=== PATIENT | male | born 1955 | race Caucasian/White ===

== ENCOUNTER → 2020-04-08 12:08 | Outpatient (BNVA) | payer OTHER, SELFPAY | PROVIDERS: Visit Provider Internal Medicine Gastroenterology | DX: Z76.89 Persons encountering health services in other specified circumstances (principal) ==

== ENCOUNTER → 2020-04-19 09:20 | Outpatient (BNVA) | payer OTHER, SELFPAY | PROVIDERS: Visit Provider Internal Medicine Gastroenterology | DX: Z76.89 Persons encountering health services in other specified circumstances (principal) ==

== ENCOUNTER 2020-05-05 16:22 | Outpatient (REF) | payer OTHER, SELFPAY ==
[2020-05-05 18:10] LABS: MANUAL DIFF FLAG NO
[2020-05-05 18:17] LABS: Basophils Percent Auto 0.5 % (0-2); Eosinophils Absolute Auto 0.2 X10*3/uL (0.0-0.4); Eosinophils Percent Auto 2.7 % (0-4); Hematocrit 42.5 % (42-52); Hemoglobin 14.2 g/dl (14.0-18.0); Imm Gran Abs Auto 0.01 X10*3/uL (0.00-0.03); Imm Gran Pct Auto 0.2 % (0.0-0.4); Lymphocytes Absolute Auto 3.1 X10*3/uL (1.2-4.9); Lymphocytes Percent Auto 46.1 % (20-40); Mean Corpuscular HGB Conc 33.4 g/dl (31.0-36.0); Mean Corpuscular Hemoglobin 30.5 pg (27.0-33.0); Mean Corpuscular Volume 91.4 fL (80-98); Mean Platelet Volume 11.9 fL (9.4-12.4); Monocytes Absolute Auto 0.6 X10*3/uL (0.1-1.2); Monocytes Percent Auto 9.2 % (2-11); Neutrophils Absolute Auto 2.7 X10*3/uL (2.0-8.3); Neutrophils Percent Auto 41.3 % (45-73); Platelet Count 201 X10*3/uL (160-400); Red Blood Count 4.65 X10*6/uL (4.60-5.80); Red Cell Distribution Width 12.4 % (11.0-16.0); White Blood Count 6.6 X10*3/uL (4.8-10.8)
[2020-05-05 18:31] LABS: Alanine Aminotransferase 17 U/L (0-40); Albumin Level 4.2 g/dL (3.5-5.0); Alkaline Phosphatase 74 U/L (39-117); Anion Gap 16 (12-20); Aspartate Amino Transferase 17 U/L (5-37); Bilirubin Total 0.3 mg/dL (0.0-1.0); Blood Urea Nitrogen 26 mg/dL (9-16); Calcium 8.7 mg/dL (8.4-10.2); Carbon Dioxide 24 mmol/L (22-29); Chloride 104 mmol/L (96-108); Estimated Glomerular Filt Rate 53; Glucose Random 76 mg/dL (60-115); Potassium 5.2 mmol/l (3.3-5.1); Sodium 139 mmol/L (135-145); Total Protein 7.6 g/dL (6.5-8.0)
[2020-08-31 11:36] LABS: HepC Viral Load <15 NOT DETECTED
[2020-08-31 11:37] LABS: HCV Log PCR <1.18 NOT DETECTED
== END 2020-05-05 16:23 | disposition home or self-care (01) ==
LOC: HO.LAB 16:22
PROVIDERS: PCP Internal Medicine; Visit Provider Internal Medicine Gastroenterology
DX: B18.2 Chronic viral hepatitis C (principal)
CPT/HCPCS: 36415; 80053; 85025; 87522

== ENCOUNTER 2020-06-03 16:26 | Outpatient (REF) | payer OTHER, SELFPAY ==
[2020-06-03 16:48] LABS: MANUAL DIFF FLAG NO
[2020-06-03 16:58] LABS: Basophils Percent Auto 0.5 % (0-2); Eosinophils Absolute Auto 0.1 X10*3/uL (0.0-0.4); Hematocrit 43.8 % (42-52); Hemoglobin 14.9 g/dl (14.0-18.0); Imm Gran Abs Auto 0.01 X10*3/uL (0.00-0.03); Imm Gran Pct Auto 0.2 % (0.0-0.4); Lymphocytes Absolute Auto 2.5 X10*3/uL (1.2-4.9); Mean Corpuscular Hemoglobin 30.7 pg (27.0-33.0); Mean Corpuscular Volume 90.1 fL (80-98); Monocytes Absolute Auto 0.5 X10*3/uL (0.1-1.2); Monocytes Percent Auto 8.7 % (2-11); Neutrophils Absolute Auto 2.3 X10*3/uL (2.0-8.3); Neutrophils Percent Auto 42.6 % (45-73); Platelet Count 203 X10*3/uL (160-400); Red Blood Count 4.86 X10*6/uL (4.60-5.80); White Blood Count 5.5 X10*3/uL (4.8-10.8)
[2020-06-03 17:23] LABS: Alanine Aminotransferase 15 U/L (0-40); Albumin Level 4.2 g/dL (3.5-5.0); Alkaline Phosphatase 77 U/L (39-117); Anion Gap 13 (12-20); Aspartate Amino Transferase 15 U/L (5-37); Bilirubin Total 0.5 mg/dL (0.0-1.0); Blood Urea Nitrogen 29 mg/dL (9-16); Calcium 9.4 mg/dL (8.4-10.2); Carbon Dioxide 26 mmol/L (22-29); Chloride 107 mmol/L (96-108); Estimated Glomerular Filt Rate 48; Glucose Random 83 mg/dL (60-115); Sodium 141 mmol/L (135-145); Total Protein 7.6 g/dL (6.5-8.0)
== END 2020-06-03 16:27 | disposition home or self-care (01) ==
LOC: HO.LAB 16:26
PROVIDERS: PCP Internal Medicine; Visit Provider Internal Medicine Gastroenterology
DX: B18.2 Chronic viral hepatitis C (principal)
CPT/HCPCS: 36415; 80053; 85025

== ENCOUNTER → 2020-06-27 11:33 | Outpatient (BNVA) | payer OTHER, SELFPAY | PROVIDERS: Visit Provider Internal Medicine Gastroenterology | DX: Z76.89 Persons encountering health services in other specified circumstances (principal) ==

== ENCOUNTER 2020-06-28 16:20 | Outpatient (REF) | payer OTHER, SELFPAY ==
[2020-06-28 17:07] LABS: MANUAL DIFF FLAG NO
[2020-06-28 17:13] LABS: Basophils Percent Auto 0.6 % (0-2); Eosinophils Absolute Auto 0.1 X10*3/uL (0.0-0.4); Hematocrit 44.9 % (42-52); Hemoglobin 15.2 g/dl (14.0-18.0); Imm Gran Abs Auto 0.02 X10*3/uL (0.00-0.03); Imm Gran Pct Auto 0.3 % (0.0-0.4); Lymphocytes Absolute Auto 3.1 X10*3/uL (1.2-4.9); Lymphocytes Percent Auto 45.3 % (20-40); Mean Corpuscular HGB Conc 33.9 g/dl (31.0-36.0); Mean Corpuscular Hemoglobin 30.3 pg (27.0-33.0); Mean Corpuscular Volume 89.6 fL (80-98); Mean Platelet Volume 11.2 fL (9.4-12.4); Monocytes Absolute Auto 0.6 X10*3/uL (0.1-1.2); Neutrophils Percent Auto 43.8 % (45-73); Platelet Count 204 X10*3/uL (160-400); Red Blood Count 5.01 X10*6/uL (4.60-5.80); Red Cell Distribution Width 13.2 % (11.0-16.0); White Blood Count 6.8 X10*3/uL (4.8-10.8)
[2020-06-28 17:49] LABS: Alanine Aminotransferase 17 U/L (0-40); Albumin Level 4.4 g/dL (3.5-5.0); Alkaline Phosphatase 81 U/L (39-117); Anion Gap 11 (12-20); Aspartate Amino Transferase 14 U/L (5-37); Bilirubin Direct 0.2 mg/dL (0.0-0.5); Bilirubin Total 0.4 mg/dL (0.0-1.0); Blood Urea Nitrogen 19 mg/dL (9-16); Carbon Dioxide 26 mmol/L (22-29); Chloride 104 mmol/L (96-108); Estimated Glomerular Filt Rate 58; Glucose Random 97 mg/dL (60-115); Potassium 4.3 mmol/l (3.3-5.1); Sodium 137 mmol/L (135-145)
[2020-08-31 11:58] LABS: HepC Viral Load <15 NOT DETECTED
[2020-08-31 11:59] LABS: HCV Log PCR <1.18 NOT DETECTED
== END 2020-06-28 16:21 | disposition home or self-care (01) ==
LOC: HO.LAB 16:20
PROVIDERS: PCP Internal Medicine; Visit Provider Internal Medicine Gastroenterology
DX: B18.2 Chronic viral hepatitis C (principal)
CPT/HCPCS: 36415; 80053; 80076; 82248; 85025; 87522

== ENCOUNTER 2020-07-11 16:27 | Outpatient (REF) | payer OTHER, SELFPAY ==
[2020-07-11 17:56] LABS: MANUAL DIFF FLAG NO
[2020-07-11 18:00] LABS: Basophils Percent Auto 0.5 % (0-2); Eosinophils Absolute Auto 0.1 X10*3/uL (0.0-0.4); Eosinophils Percent Auto 1.7 % (0-4); Hematocrit 44.3 % (42-52); Imm Gran Abs Auto 0.02 X10*3/uL (0.00-0.03); Imm Gran Pct Auto 0.3 % (0.0-0.4); Lymphocytes Percent Auto 45.6 % (20-40); Mean Corpuscular HGB Conc 33.9 g/dl (31.0-36.0); Mean Corpuscular Hemoglobin 30.7 pg (27.0-33.0); Mean Corpuscular Volume 90.6 fL (80-98); Mean Platelet Volume 11.3 fL (9.4-12.4); Monocytes Absolute Auto 0.6 X10*3/uL (0.1-1.2); Monocytes Percent Auto 8.4 % (2-11); Neutrophils Absolute Auto 2.8 X10*3/uL (2.0-8.3); Neutrophils Percent Auto 43.5 % (45-73); Platelet Count 194 X10*3/uL (160-400); Red Blood Count 4.89 X10*6/uL (4.60-5.80); Red Cell Distribution Width 13.5 % (11.0-16.0); White Blood Count 6.5 X10*3/uL (4.8-10.8)
[2020-07-11 18:18] LABS: Alanine Aminotransferase 15 U/L (0-40); Albumin Level 4.4 g/dL (3.5-5.0); Alkaline Phosphatase 77 U/L (39-117); Anion Gap 13 (12-20); Aspartate Amino Transferase 13 U/L (5-37); Bilirubin Total 0.3 mg/dL (0.0-1.0); Blood Urea Nitrogen 24 mg/dL (9-16); Calcium 9.6 mg/dL (8.4-10.2); Carbon Dioxide 28 mmol/L (22-29); Chloride 103 mmol/L (96-108); Estimated Glomerular Filt Rate 57; Glucose Random 119 mg/dL (60-115); Potassium 5.7 mmol/l (3.3-5.1); Sodium 138 mmol/L (135-145); Total Protein 7.9 g/dL (6.5-8.0)
[2020-08-31 12:05] LABS: HCV Log PCR <1.18 NOT DETECTED; HepC Viral Load <15 NOT DETECTED
== END 2020-07-11 16:28 | disposition home or self-care (01) ==
LOC: HO.LAB 16:27
PROVIDERS: PCP Internal Medicine; Visit Provider Internal Medicine Gastroenterology
DX: B18.2 Chronic viral hepatitis C (principal)
CPT/HCPCS: 36415; 80053; 85025; 87522

== ENCOUNTER → 2020-08-01 10:53 | Outpatient (BNVA) | payer OTHER, SELFPAY | PROVIDERS: PCP Internal Medicine; Referring Provider Internal Medicine; Visit Provider Internal Medicine Endocrinology, Diabetes & Metabolism ==

== ENCOUNTER → 2020-08-23 10:31 | Outpatient (BNVA) | payer OTHER, SELFPAY | PROVIDERS: PCP Internal Medicine; Visit Provider Internal Medicine Gastroenterology ==

== ENCOUNTER 2020-09-26 16:12 | Outpatient (REF) | payer OTHER, SELFPAY ==
[2020-09-26 16:52] LABS: MANUAL DIFF FLAG NO
[2020-09-26 16:57] LABS: Basophils Percent Auto 0.6 % (0-2); Eosinophils Absolute Auto 0.1 X10*3/uL (0.0-0.4); Eosinophils Percent Auto 1.1 % (0-4); Hematocrit 39.3 % (42-52); Hemoglobin 13.6 g/dl (14.0-18.0); Imm Gran Abs Auto 0.01 X10*3/uL (0.00-0.03); Imm Gran Pct Auto 0.1 % (0.0-0.4); Lymphocytes Absolute Auto 2.9 X10*3/uL (1.2-4.9); Mean Corpuscular HGB Conc 34.6 g/dl (31.0-36.0); Mean Corpuscular Hemoglobin 30.9 pg (27.0-33.0); Mean Corpuscular Volume 89.3 fL (80-98); Mean Platelet Volume 10.9 fL (9.4-12.4); Monocytes Absolute Auto 0.6 X10*3/uL (0.1-1.2); Neutrophils Absolute Auto 3.4 X10*3/uL (2.0-8.3); Neutrophils Percent Auto 48.2 % (45-73); Platelet Count 217 X10*3/uL (160-400); Red Cell Distribution Width 13.2 % (11.0-16.0)
[2020-09-26 17:24] LABS: Alanine Aminotransferase 18 U/L (0-40); Albumin Level 4.3 g/dL (3.5-5.0); Alkaline Phosphatase 75 U/L (39-117); Anion Gap 14 (12-20); Aspartate Amino Transferase 16 U/L (5-37); Bilirubin Total 0.5 mg/dL (0.0-1.0); Blood Urea Nitrogen 26 mg/dL (9-16); Calcium 9.4 mg/dL (8.4-10.2); Carbon Dioxide 25 mmol/L (22-29); Chloride 106 mmol/L (96-108); Estimated Glomerular Filt Rate 56; Glucose Random 84 mg/dL (60-115); Potassium 4.9 mmol/L (3.3-5.1); Sodium 140 mmol/L (135-145); Total Protein 7.6 g/dL (6.5-8.0)
== END 2020-09-26 16:13 | disposition home or self-care (01) ==
LOC: HO.LAB 16:12
PROVIDERS: PCP Internal Medicine; Visit Provider Internal Medicine Gastroenterology
DX: B18.2 Chronic viral hepatitis C (principal)
CPT/HCPCS: 36415; 80053; 85025

== ENCOUNTER 2020-10-03 16:07 | Outpatient (REF) | payer OTHER, SELFPAY ==
[2020-10-03 17:16] LABS: Hematocrit 42.5 % (42-52); Hemoglobin 14.1 g/dl (14.0-18.0); Mean Corpuscular HGB Conc 33.2 g/dl (31.0-36.0); Mean Corpuscular Hemoglobin 29.7 pg (27.0-33.0); Mean Corpuscular Volume 89.7 fL (80-98); Mean Platelet Volume 11.1 fL (9.4-12.4); Platelet Count 191 X10*3/uL (160-400); Red Blood Count 4.74 X10*6/uL (4.60-5.80); Red Cell Distribution Width 13.1 % (11.0-16.0); White Blood Count 6.8 X10*3/uL (4.8-10.8)
[2020-10-03 18:04] LABS: Creatinine Urine 162.62 mg/dL
[2020-10-03 18:17] LABS: Protein/Creatinine Ratio, Ur 1.93 (<0.2); Total Protein Urine Random 314 mg/dL (<12)
[2020-10-04 11:52] LABS: Calcium (PTHI) 9.8 mg/dL (8.6-10.3); PTHI 94 pg/mL (14-64)
== END 2020-10-03 16:08 | disposition home or self-care (01) ==
LOC: HO.LAB 16:07
PROVIDERS: PCP Internal Medicine; Visit Provider Internal Medicine Hypertension Specialist
DX: N18.31 Chronic kidney disease, stage 3a (principal)
CPT/HCPCS: 36415; 83970; 84156; 85027

== ENCOUNTER 2020-12-12 12:16 | Outpatient (REF) | payer OTHER, SELFPAY ==
[2020-12-12 13:51] LABS: MANUAL DIFF FLAG NO
[2020-12-12 14:03] LABS: Basophils Percent Auto 0.5 % (0-2); Eosinophils Absolute Auto 0.1 X10*3/uL (0.0-0.4); Eosinophils Percent Auto 1.7 % (0-4); Hematocrit 39.5 % (42-52); Hemoglobin 13.2 g/dl (14.0-18.0); Imm Gran Abs Auto 0.02 X10*3/uL (0.00-0.03); Imm Gran Pct Auto 0.3 % (0.0-0.4); Lymphocytes Absolute Auto 2.7 X10*3/uL (1.2-4.9); Mean Corpuscular HGB Conc 33.4 g/dl (31.0-36.0); Mean Corpuscular Hemoglobin 29.7 pg (27.0-33.0); Mean Platelet Volume 10.8 fL (9.4-12.4); Monocytes Absolute Auto 0.6 X10*3/uL (0.1-1.2); Monocytes Percent Auto 9.8 % (2-11); Neutrophils Absolute Auto 2.6 X10*3/uL (2.0-8.3); Neutrophils Percent Auto 42.7 % (45-73); Platelet Count 192 X10*3/uL (160-400); Red Blood Count 4.44 X10*6/uL (4.60-5.80); Red Cell Distribution Width 13.4 % (11.0-16.0); White Blood Count 6.1 X10*3/uL (4.8-10.8)
[2020-12-12 14:17] LABS: Anion Gap 10 (12-20); Blood Urea Nitrogen 21 mg/dL (9-16); Calcium 9.7 mg/dL (8.4-10.2); Carbon Dioxide 27 mmol/L (22-29); Chloride 106 mmol/L (96-108); Estimated Glomerular Filt Rate > 60; Potassium 4.9 mmol/L (3.3-5.1); Sodium 138 mmol/L (135-145)
[2020-12-12 14:20] LABS: Anion Gap 13 (12-20); Blood Urea Nitrogen 21 mg/dL (9-16); Calcium 9.4 mg/dL (8.4-10.2); Carbon Dioxide 24 mmol/L (22-29); Chloride 106 mmol/L (96-108); Estimated Glomerular Filt Rate > 60; Glucose Random 154 mg/dL (60-115); Potassium 4.6 mmol/L (3.3-5.1); Sodium 138 mmol/L (135-145)
[2020-12-14 10:36] LABS: Calcium (PTHI) 9.6 mg/dL (8.6-10.3); PTHI 66 pg/mL (14-64)
== END 2020-12-12 12:17 | disposition home or self-care (01) ==
LOC: HO.LAB 12:16
PROVIDERS: Absent Provider Internal Medicine Hypertension Specialist; PCP Internal Medicine; Referring Provider Internal Medicine Gastroenterology; Visit Provider Internal Medicine Endocrinology, Diabetes & Metabolism
DX: E11.65 Type 2 diabetes mellitus with hyperglycemia (principal); E11.21 Type 2 diabetes mellitus with diabetic nephropathy; E11.42 Type 2 diabetes mellitus with diabetic polyneuropathy; E11.22 Type 2 diabetes mellitus with diabetic chronic kidney disease; I12.9 Hypertensive chronic kidney disease with stage 1 through stage 4 chronic kidney disease, or unspecified chronic kidney disease; N18.31 Chronic kidney disease, stage 3a; E78.5 Hyperlipidemia, unspecified; E66.9 Obesity, unspecified; Z68.38 Body mass index [BMI] 38.0-38.9, adult; B18.2 Chronic viral hepatitis C; Z79.4 Long term (current) use of insulin
CPT/HCPCS: 36415; 80048; 80051; 82310; 82565; 82947; 83036; 83970; 84520; 85025

== ENCOUNTER → 2021-04-13 12:07 | Outpatient (BNVA) | payer OTHER, SELFPAY | PROVIDERS: PCP Internal Medicine; Visit Provider Nurse Practitioner Gerontology | DX: E11.65 Type 2 diabetes mellitus with hyperglycemia (principal); E11.21 Type 2 diabetes mellitus with diabetic nephropathy; E11.42 Type 2 diabetes mellitus with diabetic polyneuropathy; I10 Essential (primary) hypertension; E78.5 Hyperlipidemia, unspecified; C61 Malignant neoplasm of prostate; E66.9 Obesity, unspecified; Z68.38 Body mass index [BMI] 38.0-38.9, adult; Z88.8 Allergy status to other drugs, medicaments and biological substances; Z88.1 Allergy status to other antibiotic agents; Z88.0 Allergy status to penicillin; Z91.013 Allergy to seafood; Z79.4 Long term (current) use of insulin; Z79.84 Long term (current) use of oral hypoglycemic drugs; Z79.899 Other long term (current) drug therapy | CPT/HCPCS: 82947; 83036 ==

== ENCOUNTER 2021-04-18 09:32 | Outpatient (REF) | payer OTHER, SELFPAY ==
[2021-04-18 11:06] LABS: Creatinine Urine 123.19 mg/dL
[2021-04-18 11:11] LABS: Alanine Aminotransferase 14 U/L (0-40); Albumin Level 4.2 g/dL (3.5-5.0); Alkaline Phosphatase 78 U/L (39-117); Anion Gap 14 (12-20); Aspartate Amino Transferase 14 U/L (5-37); Bilirubin Total 0.5 mg/dL (0.0-1.0); Blood Urea Nitrogen 22 mg/dL (9-16); Calcium 9.9 mg/dL (8.4-10.2); Carbon Dioxide 23 mmol/L (22-29); Chloride 107 mmol/L (96-108); Cholesterol 135 mg/dL; Estimated Glomerular Filt Rate 54; Glucose Fasting 122 mg/dL (60-99); HDL Cholesterol 29 mg/dL; LDL Cholesterol Calculated 72 mg/dl; Potassium 5.2 mmol/L (3.3-5.1); Sodium 139 mmol/L (135-145); Total Protein 7.4 g/dL (6.5-8.0); Triglycerides 174 mg/dL
[2021-04-18 11:55] LABS: Microalbum/Creatinine Ratio Ur 1987.9 ug/mg cr
[2021-04-19 07:41] LABS: LDL Cholesterol Direct 73 mg/dL (<100)
== END 2021-04-18 09:33 | disposition home or self-care (01) ==
LOC: HO.LAB 09:32
PROVIDERS: Absent Provider Nurse Practitioner Gerontology; Visit Provider Internal Medicine Gastroenterology
DX: E11.65 Type 2 diabetes mellitus with hyperglycemia (principal)
CPT/HCPCS: 36415; 80053; 80061; 82043; 83721

== ENCOUNTER 2021-11-22 10:17 | Outpatient (REF) | payer OTHER, SELFPAY ==
[2021-11-22 13:03] LABS: Anion Gap 12 (12-20); Blood Urea Nitrogen 20 mg/dL (9-16); Calcium 9.4 mg/dL (8.4-10.2); Carbon Dioxide 23 mmol/L (22-29); Chloride 105 mmol/L (96-108); Estimated Glomerular Filt Rate 46; Potassium 4.6 mmol/L (3.3-5.1); Sodium 135 mmol/L (135-145)
[2021-11-22 13:51] LABS: Creatinine Urine 275.56 mg/dL
[2021-11-22 14:10] LABS: Total Protein Urine Random 936 mg/dL (<12)
== END 2021-11-22 10:18 | disposition home or self-care (01) ==
LOC: HO.LAB 10:17
PROVIDERS: Absent Provider Internal Medicine Hypertension Specialist; PCP Nurse Practitioner; Visit Provider Nurse Practitioner Gerontology
DX: E11.29 Type 2 diabetes mellitus with other diabetic kidney complication (principal); E11.65 Type 2 diabetes mellitus with hyperglycemia; E11.21 Type 2 diabetes mellitus with diabetic nephropathy; E11.42 Type 2 diabetes mellitus with diabetic polyneuropathy; E78.5 Hyperlipidemia, unspecified; I10 Essential (primary) hypertension; E66.9 Obesity, unspecified; Z79.4 Long term (current) use of insulin
CPT/HCPCS: 36415; 80051; 82310; 82565; 82947; 83036; 84156; 84520

== ENCOUNTER 2022-10-09 14:36 | Outpatient (REF) | payer OTHER, SELFPAY ==
[2022-10-09 14:48] LABS: MANUAL DIFF FLAG NO
[2022-10-09 15:31] LABS: Basophils Absolute Auto 0.1 X10*3/uL (0.0-0.2); Basophils Percent Auto 0.8 % (0-2); Eosinophils Absolute Auto 0.1 X10*3/uL (0.0-0.4); Hematocrit 39.4 % (42.0-52.0); Imm Gran Abs Auto 0.02 X10*3/uL (0.00-0.03); Imm Gran Pct Auto 0.3 % (0.0-0.4); Lymphocytes Absolute Auto 2.8 X10*3/uL (1.2-4.9); Lymphocytes Percent Auto 47.8 % (20-40); Mean Corpuscular Hemoglobin 28.7 pg (27.0-33.0); Mean Platelet Volume 11.5 fL (9.4-12.4); Monocytes Absolute Auto 0.5 X10*3/uL (0.1-1.2); Monocytes Percent Auto 8.3 % (2-11); Neutrophils Absolute Auto 2.4 x10*3/uL (2.0-8.3); Neutrophils Percent Auto 40.8 % (45-73); Platelet Count 220 X10*3/uL (160-400); Red Blood Count 4.53 X10*6/uL (4.60-5.80); Red Cell Distribution Width 13.7 % (11.0-16.0); White Blood Count 5.9 X10*3/uL (4.8-10.8)
[2022-10-09 16:02] LABS: Anion Gap 14 (12-20); Blood Urea Nitrogen 27 mg/dL (9-16); Calcium 9.1 mg/dL (8.4-10.2); Carbon Dioxide 22 mmol/L (22-29); Chloride 107 mmol/L (96-108); Estimated Glomerular Filt Rate 39; Glucose Random 199 mg/dL (60-115); Potassium 5.6 mmol/L (3.3-5.1); Sodium 137 mmol/L (135-145)
[2022-10-09 16:24] LABS: Creatinine Urine 74.59 mg/dL; Protein/Creatinine Ratio, Ur 6.85 (<0.2); Total Protein Urine Random 511 mg/dL (<12)
== END 2022-10-09 14:37 | disposition home or self-care (01) ==
LOC: HO.LAB 14:36
PROVIDERS: PCP Nurse Practitioner; Visit Provider Internal Medicine Hypertension Specialist
DX: N18.31 Chronic kidney disease, stage 3a (principal)
CPT/HCPCS: 36415; 80048; 84156; 85025

== ENCOUNTER 2022-11-27 14:52 | Outpatient (REF) | payer BC, SELFPAY ==
[2022-11-27 15:32] LABS: INTERNATIONAL NORM RATIO 0.9 (0.9-1.1); Prothrombin Time 10.3 SEC (10.0-13.1)
[2022-11-27 18:52] LABS: Creatinine Urine 67.02 mg/dL
[2022-11-27 19:13] LABS: Protein/Creatinine Ratio, Ur 5.74 (<0.2); Total Protein Urine Random 385 mg/dL (<12)
[2022-11-28 07:52] LABS: HBc Num1 0.07 S/CO (0.00-0.79); HBsAGNum1 0.39 S/CO (0.00-0.99); Hepatitis B Core Antibody Nonreactive (Nonreactive); Hepatitis B Surface Antigen Negative (Negative); ~HepC Num1 13.86 S/CO (0.00-0.79); ~Hepatitis C Antibody Reactive (Nonreactive)
[2022-11-29 16:23] LABS: Anti Glomerular Basement Memb <1.0 AI
[2022-11-30 10:58] LABS: Complement C3 159 mg/dL (82-185)
[2022-12-02 23:33] LABS: Prot Elec - Albumin 3.9 g/dL (3.8-4.8); Prot Elec - Alpha1 0.4 g/dL (0.2-0.3); Prot Elec - Alpha2 0.9 g/dL (0.5-0.9); Prot Elec - Beta 1 0.4 g/dL (0.4-0.6); Prot Elec - Beta 2 0.4 g/dL (0.2-0.5); Prot Elec - Gamma 1.1 g/dL (0.8-1.7); Prot Elec - Total Protein 7.1 g/dL (6.1-8.1)
[2022-12-04 13:28] LABS: Anti Nuclear Antibody Screen POSITIVE (NEGATIVE)
[2022-12-05 12:07] LABS: Neutrophil Cyto Ab Screen NEGATIVE (NEGATIVE)
== END 2022-11-27 14:53 | disposition home or self-care (01) ==
LOC: HO.LAB 14:52
PROVIDERS: Visit Provider Internal Medicine Hypertension Specialist
DX: N18.32 Chronic kidney disease, stage 3b (principal)
CPT/HCPCS: 83520; 84156; 84165; 85610; 86036; 86038; 86039; 86160; 86335; 86704; 86803; 87340

== ENCOUNTER 2022-12-06 15:15 | Outpatient (REF) | payer MEDICARE, SELFPAY ==
[2022-12-06 16:32] LABS: Calcium 9.7 mg/dL (8.4-10.2)
[2022-12-06 16:47] LABS: Anion Gap 12 (12-20); Blood Urea Nitrogen 27 mg/dL (9-16); Carbon Dioxide 24 mmol/L (22-29); Chloride 109 mmol/L (96-108); Estimated Glomerular Filt Rate 40; Glucose Random 142 mg/dL (60-115); Potassium 5.1 mmol/L (3.3-5.1); Sodium 140 mmol/L (135-145)
== END 2022-12-06 15:16 | disposition home or self-care (01) ==
LOC: HO.LAB 15:15
PROVIDERS: Visit Provider Internal Medicine Hypertension Specialist
DX: N18.32 Chronic kidney disease, stage 3b (principal)
CPT/HCPCS: 36415; 80048

== ENCOUNTER 2024-01-15 15:16 | Outpatient (REF) | payer MEDICARE, SELFPAY ==
[2024-01-15 15:39] LABS: MANUAL DIFF FLAG NO
[2024-01-15 17:30] LABS: Appearance Urine Clear; Color Urine Yellow; Glucose Urine UA 100 mg/dL (Negative); Leukocyte Esterase Urine Negative (Negative); Nitrite Urine Negative (Negative); PH 5.5 (5.0-9.0); Specific Gravity - Urine 1.015 (1.005-1.025); UMIC TRIGGER UA YES; Urine Blood Small (1+) (Negative); Urine Ketones Negative (Negative); Urine Protein 300 (3+) mg/dL (Neg-Trace)
[2024-01-15 17:33] LABS: Basophils Percent Auto 0.7 % (0-2); Eosinophils Absolute Auto 0.2 X10*3/uL (0.0-0.4); Eosinophils Percent Auto 2.7 % (0-4); Hematocrit 38.7 % (42.0-52.0); Hemoglobin 12.6 g/dl (14.0-18.0); Imm Gran Abs Auto 0.02 X10*3/uL (0.00-0.03); Imm Gran Pct Auto 0.4 % (0.0-0.4); Lymphocytes Absolute Auto 2.6 X10*3/uL (1.2-4.9); Lymphocytes Percent Auto 46.2 % (20-40); Mean Corpuscular HGB Conc 32.6 g/dl (31.0-36.0); Mean Corpuscular Hemoglobin 29.4 pg (27.0-33.0); Mean Corpuscular Volume 90.2 fL (80.0-98.0); Mean Platelet Volume 11.7 fL (9.4-12.4); Monocytes Absolute Auto 0.5 X10*3/uL (0.1-1.2); Monocytes Percent Auto 8.9 % (2-11); Neutrophils Absolute Auto 2.3 x10*3/uL (2.0-8.3); Neutrophils Percent Auto 41.1 % (45-73); Platelet Count 240 X10*3/uL (160-400); Red Blood Count 4.29 X10*6/uL (4.60-5.80); Red Cell Distribution Width 14.4 % (11.0-16.0); White Blood Count 5.6 X10*3/uL (4.8-10.8)
[2024-01-15 17:50] LABS: Bacteria Urine None Seen (None Seen); Hyaline Casts Urine 0-2 /LPF (0-2); Squamous Epithelial Cell Urine 0-2 /HPF (0-2); WBC Urine 0-5 /HPF (0-5)
[2024-01-15 18:18] LABS: Albumin Level 3.8 g/dL (3.5-5.0); Anion Gap 15 (12-20); Blood Urea Nitrogen 42 mg/dL (9-16); Calcium 9.6 mg/dL (8.4-10.2); Carbon Dioxide 20 mmol/L (22-29); Chloride 107 mmol/L (96-108); Estimated Glomerular Filt Rate 27; Magnesium 1.8 mg/dL (1.6-2.6); Potassium 5.7 mmol/L (3.3-5.1); Sodium 136 mmol/L (135-145)
[2024-01-15 18:26] LABS: Vitamin D 25-OH Total 9.8 ng/mL (>30)
[2024-01-15 18:46] LABS: Creatinine Urine 56.87 mg/dL; Microalbumin Urine > 2000.0 mg/L
[2024-01-15 19:15] LABS: Protein/Creatinine Ratio, Ur 8.88 (<0.2); Total Protein Urine Random 505 mg/dL (<12)
[2024-01-16 06:12] LABS: Parathyroid Hormone Intact 292.3 pg/mL (8.7-77.1)
== END 2024-01-15 15:17 | disposition home or self-care (01) ==
LOC: HO.LAB 15:16
PROVIDERS: PCP Student in an Organized Health Care Education/Training Program; Visit Provider Internal Medicine Nephrology
DX: E11.21 Type 2 diabetes mellitus with diabetic nephropathy (principal); I10 Essential (primary) hypertension; I12.9 Hypertensive chronic kidney disease with stage 1 through stage 4 chronic kidney disease, or unspecified chronic kidney disease; N25.0 Renal osteodystrophy; R80.1 Persistent proteinuria, unspecified
CPT/HCPCS: 36415; 80051; 81001; 82040; 82043; 82306; 82310; 82565; 82570; 83735; 83970; 84100; 84156; 84520; 85025; 87086

== ENCOUNTER 2024-05-11 13:45 | Outpatient (REF) | payer MEDICARE, SELFPAY ==
[2024-05-11 14:06] LABS: MANUAL DIFF FLAG NO
[2024-05-11 14:13] LABS: Appearance Urine Clear; Color Urine Yellow; Glucose Urine UA 100 mg/dL (Negative); Leukocyte Esterase Urine Negative (Negative); Nitrite Urine Negative (Negative); PH 5.5 (5.0-9.0); UMIC TRIGGER UA YES; Urine Blood Trace (Negative); Urine Ketones Negative (Negative); Urine Protein 100 (2+) mg/dL (Neg-Trace)
[2024-05-11 14:25] LABS: Bacteria Urine None Seen (None Seen); Hyaline Casts Urine 0-2 /LPF (0-2); RBC Urine 0-2 /HPF (0-2); Squamous Epithelial Cell Urine 0-2 /HPF (0-2); WBC Urine 0-5 /HPF (0-5)
[2024-05-11 14:38] LABS: Creatinine Urine 33.38 mg/dL; Protein/Creatinine Ratio, Ur 4.37 (<0.2); Total Protein Urine Random 146 mg/dL (<12)
[2024-05-11 14:41] LABS: Basophils Absolute Auto 0.1 X10*3/uL (0.0-0.2); Basophils Percent Auto 0.8 % (0-2); Eosinophils Absolute Auto 0.2 X10*3/uL (0.0-0.4); Eosinophils Percent Auto 2.5 % (0-4); Hematocrit 34.4 % (42.0-52.0); Hemoglobin 11.5 g/dl (14.0-18.0); Imm Gran Abs Auto 0.03 X10*3/uL (0.00-0.03); Imm Gran Pct Auto 0.5 % (0.0-0.4); Lymphocytes Absolute Auto 2.7 X10*3/uL (1.2-4.9); Lymphocytes Percent Auto 41.5 % (20-40); Mean Corpuscular HGB Conc 33.4 g/dl (31.0-36.0); Mean Corpuscular Hemoglobin 29.5 pg (27.0-33.0); Mean Corpuscular Volume 88.2 fL (80.0-98.0); Mean Platelet Volume 11.5 fL (9.4-12.4); Monocytes Absolute Auto 0.5 X10*3/uL (0.1-1.2); Monocytes Percent Auto 8.3 % (2-11); Neutrophils Percent Auto 46.4 % (45-73); Platelet Count 246 X10*3/uL (160-400); Red Cell Distribution Width 13.2 % (11.0-16.0); White Blood Count 6.5 X10*3/uL (4.8-10.8)
[2024-05-11 15:01] LABS: Microalbum/Creatinine Ratio Ur 3112.6 ug/mg cr (<30)
[2024-05-11 15:16] LABS: Parathyroid Hormone Intact 333.1 pg/mL (8.7-77.1)
[2024-05-11 17:17] LABS: Anion Gap 14 (12-20); Blood Urea Nitrogen 42 mg/dL (9-16); Calcium 9.7 mg/dL (8.4-10.2); Carbon Dioxide 22 mmol/L (22-29); Chloride 103 mmol/L (96-108); Estimated Glomerular Filt Rate 25; Phosphorus 2.8 mg/dL (2.7-4.5); Potassium 4.8 mmol/L (3.3-5.1); Sodium 134 mmol/L (135-145); Vitamin D 25-OH Total 8.5 ng/mL (>30)
[2024-05-11 17:42] LABS: Magnesium 1.8 mg/dL (1.6-2.6)
== END 2024-05-11 13:46 | disposition home or self-care (01) ==
LOC: HO.LAB 13:45
PROVIDERS: PCP Student in an Organized Health Care Education/Training Program; Visit Provider Internal Medicine Nephrology
DX: N18.4 Chronic kidney disease, stage 4 (severe) (principal); R80.1 Persistent proteinuria, unspecified
CPT/HCPCS: 36415; 80051; 81001; 82040; 82043; 82306; 82310; 82565; 82570; 83735; 83970; 84100; 84156; 84520; 85025

== ENCOUNTER 2024-11-24 14:26 | Outpatient (REF) | payer MEDICARE, SELFPAY ==
--- OUTSIDE RECORDS SUMMARY | 2024-11-24 14:30 | XMS_ITS | Clinical Summary ---
Author Organization [facility] ity Address [address] [place] [address] Care Team Providers Care Textile Pin Worker Name Role Phone Unavailable Primary Care Provider Unavailabl e Medical History Medical History Date Comments Allergic rhinitis 11/21/2017 DX:Allergic rh initis Diabetic neuropathy (CMS/HCC V24, CMS/HCC V28) 11/21/2017 DX:Diabetic neuropathy (HCC) Diverticulosis of colon 11/12/2016 DX:Diver ticulosis of colon History of prostate cancer 04/03/2018 DX:Hi story of prostate cancer Hyperlipidemia 04/03/2018 DX:Hyperlipidemi a Hypertension 04/03/2018 DX:Hypertension Internal hemorrhoids 09/16/2015 DX:Internal hemorrhoids Proteinuria 04/03/2018 DX:Proteinuria Type 2 diabetes mellitus wit h neurological manifestations (CMS/HCC V24, CMS/HCC V28) 04/03/2018 DX: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 (CMS/HCC V24, CMS/HCC V28) 05/05/2018 DX: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) Urinary incontinence 03/14/2017 DX:Urinary incontinence Family History Medical History Relation Name Comments Alzheimer's disease Father Alzheimer's disease Mother Relation Name Status Comments Father Mother Social History Tobacco Use Types Packs/Day Years Used Date Smoking Tobacco: Never Smokeless Tobacco: Never Alcohol Use Standard Drinks/Week Comments Yes 1 (1 standard drink = 0.6 oz pur e alcohol) Sex and Gender Information Value Date Recorded Sex Assigned at Not on file Legal Sex Male 9:06 AM EST Gender Identity Not on file Sexual Orientation Not on file Obstetrics History Plan of Treatment Health Maintenance Due Date Last Done Comments DTaP,Tdap,and Td Vaccines (1 - Tdap) 1976 Zoster Vaccines (1 of 2) 11/04/2007 Pneumococcal Vaccine: 50+ Ye ars (2 of 2 - PCV) 11/12/2017 11/12/2016 COVID-19 Vaccine (2023-2 5 season) 2024 Influenza Vaccine (Season Ended) 2025 RSV Immunization Adult Patie nts (1 - 1-dose 75+ series) 2032 HIB Vaccines Aged Out No longer eligi ble based on patient's age to complete this topic HPV Vaccines Aged Out No longer eligi ble based on patient's age to complete this topic Hepatitis A Vaccines Aged Out No long er eligible based on patient's age to complete this topic Hepatitis B Vaccines Aged Out No long er eligible based on patient's age to complete this topic IPV Vaccines Aged Out No longer eligi ble based on patient's age to complete this topic MMR Vaccines Aged Out No longer eligi ble based on patient's age to complete this topic Meningococcal ACWY Vaccine Aged Out N o longer eligible based on patient's age to complete this topic Meningococcal B Vaccine Aged Out No l onger eligible based on patient's age to complete this topic RSV Immunization Patients Un greta 20 months Aged Out No longer eligible b ased on patient's age to complete this topic Varicella Vaccines Aged Out No longer eligible based on patient's age to complete this topic
[2024-11-24 14:50] LABS: MANUAL DIFF FLAG NO
[2024-11-24 15:37] LABS: Basophils Percent Auto 0.6 % (0-2); Eosinophils Absolute Auto 0.1 X10*3/uL (0.0-0.4); Hematocrit 37.3 % (42.0-52.0); Imm Gran Abs Auto 0.04 X10*3/uL (0.00-0.03); Imm Gran Pct Auto 0.6 % (0.0-0.4); Lymphocytes Absolute Auto 2.7 X10*3/uL (1.2-4.9); Lymphocytes Percent Auto 42.2 % (20-40); Mean Corpuscular HGB Conc 32.2 g/dl (31.0-36.0); Mean Corpuscular Hemoglobin 28.9 pg (27.0-33.0); Mean Corpuscular Volume 89.9 fL (80.0-98.0); Mean Platelet Volume 11.6 fL (9.4-12.4); Monocytes Absolute Auto 0.6 X10*3/uL (0.1-1.2); Monocytes Percent Auto 8.6 % (2-11); Neutrophils Absolute Auto 2.9 x10*3/uL (2.0-8.3); Platelet Count 230 X10*3/uL (160-400); Red Blood Count 4.15 X10*6/uL (4.60-5.80); Red Cell Distribution Width 13.6 % (11.0-16.0); White Blood Count 6.4 X10*3/uL (4.8-10.8)
[2024-11-24 15:55] LABS: Appearance Urine Clear; Color Urine Yellow; Glucose Urine UA Negative (Negative); Leukocyte Esterase Urine Negative (Negative); Nitrite Urine Negative (Negative); PH 5.5 (5.0-9.0); UMIC TRIGGER UA YES; Urine Blood Negative (Negative); Urine Ketones Negative (Negative); Urine Protein 300 (3+) mg/dL (Neg-Trace)
[2024-11-24 16:02] LABS: Bacteria Urine None Seen (None Seen); RBC Urine 0-2 /HPF (0-2); Squamous Epithelial Cell Urine 0-2 /HPF (0-2); WBC Urine 0-5 /HPF (0-5)
[2024-11-24 16:20] LABS: Albumin Level 4.2 g/dL (3.5-5.0); Anion Gap 13 (12-20); Blood Urea Nitrogen 45 mg/dL (9-16); Calcium 9.5 mg/dL (8.4-10.2); Carbon Dioxide 23 mmol/L (22-29); Chloride 107 mmol/L (96-108); Estimated Glomerular Filt Rate 26; Phosphorus 2.6 mg/dL (2.7-4.5); Potassium 5.3 mmol/L (3.3-5.1); Sodium 138 mmol/L (135-145)
[2024-11-24 16:22] LABS: PTH Intact Intraoperative 246.9 pg/mL (8.7-77.1)
[2024-11-24 16:30] LABS: Creatinine Urine 35.53 mg/dL; Protein/Creatinine Ratio, Ur 3.74 (<0.2); Total Protein Urine Random 133 mg/dL (<12)
[2024-11-24 16:34] LABS: Vitamin D 25-OH Total 13.3 ng/mL (>30)
== END 2024-11-24 14:27 | disposition home or self-care (01) ==
LOC: HO.LAB 14:26
PROVIDERS: PCP Student in an Organized Health Care Education/Training Program; Visit Provider Internal Medicine Nephrology
DX: N25.0 Renal osteodystrophy (principal); N18.4 Chronic kidney disease, stage 4 (severe)
CPT/HCPCS: 36415; 80051; 81001; 82040; 82043; 82306; 82310; 82565; 82570; 83735; 83970; 84100; 84156; 84520; 85025; 87086

== ENCOUNTER 2025-03-26 16:37 | Outpatient (REF) | payer MEDICARE, SELFPAY ==
--- OUTSIDE RECORDS SUMMARY | 2025-03-26 16:40 | XMS_ITS | Clinical Summary ---
Author Organization [facility] Address [address] [place] [phone] Phone Care Team Providers Care Table Games Manager Name Role Phone Pcp, Unknown Primary Care Provider Unavailabl e Allergies Active Allergy Reactions Criticality Noted Date Comments Penicillins 11/05/2022 Fish Derived 11/05/2022 Shellfish Containing Products 2022 Medications BIA NICOLAS GLARG-YFGN,PEN 100 unit/mL (3 mL) InPn INJECT 40 UNITS EVERY DAY SUBCUTANEOUSLY FOR 30 DAYS. 3 Active metoprolol succinate (TOPROL-XL) 50 MG 24 hr tablet Take 1 tablet by mouth 2 (two) times a day. 3 Active NIFEdipine (PROCARDIA XL) 90 MG 24 hr tablet Take 1 tablet by mouth every morning. 3 Active pentoxifylline (TRENTAL) 400 mg CR tablet Take 1 tablet by mouth 2 (two) times a day. 3 Active pravastatin (PRAVACHOL) 80 MG tablet Take 80 mg by mouth nightly at bedtime. at bedtime. 3 Active valsartan (DIOVAN) 160 MG tablet TAKE 1/2 TABLET BY MOUTH IN MORNING AND ONE TABLET IN EVENING 3 Active metFORMIN (GLUCOPHAGE) 1000 MG tablet Take 1,000 mg by mouth 2 (two) times a day with meals. Active aspirin 81 mg chewable tablet Take 81 mg by mouth daily. Active phenazopyridin e (PYRIDIUM) 200 MG tablet Take 1 tablet (200 mg total) by mouth 3 (three) times a day as needed for pain (specific location in comments). 10 tablet 3 Active oxyCODONE 5 MG immediate release tablet Take 1-2 tablets (5-10 mg total) by mouth every 8 (eight) hours as needed. Partial fill ok 3 tablet 3 Active cephalexin (KEFLEX) 500 MG capsule Take 1 capsule (500 mg total) by mouth 3 (three) times a day. 3 capsule 3 Active Active Problems No known active problems Social History Tobacco Use Types Packs/Day Years Used Date Smoking Tobacco: Never Smokeless Tobacco: Never Tobacco Cessation:Counseling Given: Not Answered Alcohol Use Standard Drinks/Week Comments Yes 4 (1 standard drink = 0.6 oz pur e alcohol) Education Answer Date Recorded Are you interested in more education? Not on kamar e 11/05/2022 Are you concerned about learning? Not on file 11/05/2022 No 11/05/2022 No 11/05/2022 Digital Access Answer Date Recorded No 11/27/2022 No 11/27/2022 Reliable internet access at home? Not on file 11/27/2022 Device with a working camera? Not on file Sex and Gender Information Value Date Recorded Sex Assigned at Not on file Legal Sex Male 9:16 AM EDT Gender Identity Not on file Sexual Orientation Not on file Last Filed Vital Signs Vital Sign Reading Time Taken Comments Blood Pressure 163/87 11/07/2022 12:15 PM EDT Pulse 70 11/07/2022 12:15 PM EDT Temperature 36.5 C (97.7 F) 11/07/2022 12:15 PM EDT Respiratory Rate 16 11/07/2022 12:15 PM EDT Oxygen Saturation 95% 11/07/2022 12:15 PM EDT Inhaled Oxygen Concentration - - Weight 113.4 kg (250 lb) 11/05/2022 11:59 AM EDT Height 170.2 cm (5' 7 ) 11/05/2022 11:59 AM EDT Body Mass Index 39.16 11/05/2022 11:59 AM EDT Plan of Treatment Health Maintenance Due Date Last Done Comments CREATININE LEVEL 1957 LIPID PANEL 1957 POTASSIUM LEVEL 1957 DEPRESSION SCREENING 1969 HEPATITIS C SCREENING 11/04/1975 SCREENING FOR DIABETES 1992 COLOGUARD 2002 COLONOSCOPY 2002 COLORECTAL CANCER SCREENING 2002 FIT TEST 2002 FOBT 2002 SIGMOIDOSCOPY 2002 VIRTUAL COLONOSCOPY 2002 PNEUMOCOCCAL VACCINES (50+ years) (2 of 2 - PCV) 11/12/2017 11/12/2016 INFLUENZA VACCINE (#1) 2025 COVID-19 VACCINE ( - 2024- season) 2025 06/07/2022, 05/17/2021, 08/19/2020, Additional history exists Adult Td,Tdap Booster 01/10/2030 01/11/2020 RSV VACCINE (1 - 1-dose 75+ series) 2032 ZOSTER VACCINES Completed 09/03/2022, 03/29/2022 SMOKING STATUS SCREENING (Once After 26 Yrs) Completed 11/07/2022 HEPATITIS A VACCINES Aged Out No long er eligible based on patient's age to complete this topic HIB VACCINES Aged Out No longer eligi ble based on patient's age to complete this topic MENINGOCOCCAL VACCINES (ACWY) Aged Out No longer eligible based on patient's age to complete this topic MENINGOCOCCAL VACCINES (B) Aged Out N o longer eligible based on patient's age to complete this topic Medical Devices Implanted Type Area Student Activities Director Device Identifier Shelf Expiration Date Model / Serial / Lot Stent Ureteral [id number] To 30cm Double Pigtail Suture Stretch Vl Positioner - [id number] Implanted:Qty: 1 on 11/07/2022 by Froilan Bartlett MD at [facility] Left: Ureter Songfor KARLENE 05/16/2025 [id number] / / [id number] Insurance [facility] [place] [address] [place] [address] [place] [address] [place] [address] [address] HMO [facility] HMO Care Teams Table Games Manager Relationship Specialty Start Date End Date Pcp, Unknown PCP - General 11/05/22 Additional Source Comments The information contained in this document represents components of the legal health record. It is not the complete legal health record.[facility]
--- OUTSIDE RECORDS SUMMARY | 2025-03-26 16:40 | XMS_ITS | Clinical Summary ---
Author Organization [facility] Address [address] [place] [address] Phone Care Team Providers Care Camouflage Specialist Name Role Phone Latia Howell MD Primary Care Provider Allergies Active Allergy Reactions Criticality Noted Date Comments Mike Inhibitors Other (see comments) Low 05/19/2018 Angiotensin Receptor Blockers Other (see comments) 09/14/2020 Fish-Derived Products 11/05/2022 Other 07/09/2017 Other reaction(s): Unknown Pt states he does not remember his reaction to Angiotension receptor blockers Penicillamine Hives 08/15/2015 Penicillins Rash,Other (see comments) Low 09/14/2020 Shellfish Allergy 05/23/2022 Shellfish-Derived Products Anaphylaxis High 08/15/2015 Medications aspirin (ST CLAUDIO) 81 MG EC tablet Take 81 mg by mouth 1 (one) time each day Active NIFEdipine CC (ADALAT CC) 90 MG 24 hr tablet Take 90 mg by mouth 1 (one) time each day before breakfast Do not crush, chew, or split. Active pravastatin (PRAVACHOL) 40 MG tablet Take 60 mg by mouth 1 (one) time each day Active valsartan (DIOVAN) 160 MG tablet Take 160 mg by mouth 1 (one) time each day 1/2 tab AM 1 tab PM Active Insulin Glargine-yfgn 100 UNIT/ML solution pen-injector 42 Units 11/01/19 23 Active atorvastatin (LIPITOR) 20 MG tablet Take 20 mg by mouth 1 (one) time each day Active omeprazole (PriLOSEC) [address] capsule Take 20 mg by mouth 1 (one) time each day Do not crush or chew. Active hydrALAZINE 25 MG tablet TAKE 1 TABLET(25 MG) BY MOUTH IN THE MORNING AND IN THE EVENING 180 tablet 09/01/19 25 Active Dapagliflozin Propanediol 10 MG tablet Take 10 mg by mouth 1 (one) time each day in the morning 90 tablet 2 11/03/19 25 026 Active metoprolol tartrate (LOPRESSOR) 50 MG tabletIndicatio ns:Hypertension TAKE 2 TABLETS(100 MG) BY MOUTH DAILY 60 tablet 2 01/21/20 25 Active insulin glargine (Basaglar KwikPen) 100 UNIT/ML injection Inject 50 Units under the skin every night Active glimepiride (AMARYL) 1 MG tablet Take 1 mg by mouth 1 (one) time each day before breakfast Active torsemide (DEMADEX) 20 MG tablet Take 2 tablets (40 mg total) by mouth 1 (one) time each day 180 tablet 02/09/20 25 Active calcitriol (ROCALTROL) 0.25 MCG capsule TAKE 1 CAPSULE(0.25 MCG) BY MOUTH EVERY OTHER DAY 45 capsule 1 02/26/20 25 Active calcitriol (ROCALTROL) 0.25 MCG capsule TAKE 1 CAPSULE(0.25 MCG) BY MOUTH EVERY OTHER DAY 45 capsule 1 08/07/19 25 025 Discontinued Active Problems Problem Noted Date Diagnosed Date Chronic kidney disease, stage 4 (severe) 025 Chronic kidney disease, stage 4 (severe) 024 Chronic kidney disease, stage 4 (severe) 024 Renal osteodystrophy 11/04/2023 Proteinuria 11/04/2023 Edema of lower extremity 10/04/2023 Bullous pemphigoid 10/04/2023 Serous bulla of skin 10/04/2023 Right bundle-branch block 10/25/2022 Obese class II 10/25/2022 Increased blood pressure 10/25/2022 Osteoarthritis of knee 06/20/2022 Chronic kidney disease stage 3A 01/16/2021 Hypertensive renal disease 11/25/2020 Polyneuropathy due to diabetes mellitus 10/19/19 21 Uncontrolled type 2 diabetes mellitus 10/18/2020 Overview (03/31/2024): Replacing diagnoses that were inactivated after the 03/31/24 Regulatory Import Chronic viral hepatitis C 05/04/2020 Overview (02/03/2025): Labs 05/05/20 normal LFTs, VL undetectabletreated with Harvoni Chronic kidney disease 12/02/2019 Diabetes mellitus 12/02/2019 Essential hypertension 12/02/2019 Renal disorder due to type 2 diabetes mellitus 0 12/02/2019 History of malignant neoplasm of prostate 2017 Hyperlipidemia 04/03/2018 Proteinuria 04/03/2018 Allergic rhinitis 11/21/2017 Urinary incontinence 03/14/2017 Diverticulosis of colon 11/12/2016 Internal hemorrhoids 09/16/2015 Encounters Date Type Department Care Team Description 02/25/2025 Refill [facility] [address] [place] [address] Juventino Dunn MD 02/08/2025 3:15 PM EDT Office Visit [facility] [address] [place] [address] Juventino Dunn MD Chronic kidney disease, stage 4 (severe) (HCC) (Primary Dx); Persistent proteinuria; Renal osteodystrophy; Hypertensive renal disease 01/19/2025 Refill [facility] [address] [id number] Jose Molina MD Hypertension from Last 3 Months Immunizations Immunization Administration Dates Next Due Moderna SARS-COV-2 05/17/2021,08/19/2020, 021 Pneumococcal Polysaccharide 11/12/2016 Pneumococcal, Unspecified 11/12/2016 Shingrix 09/03/2022,03/29/2022 Tdap 01/11/2020 Zoster 09/03/2022,03/29/2022 Family History Relation Status Comments Father Mother Social History Tobacco Use Types Packs/Day Years Used Date Smoking Tobacco: Never Smokeless Tobacco: Never Tobacco Cessation:Counseling Given: Not Answered Alcohol Use Standard Drinks/Week Comments Yes 0 (1 standard drink = 0.6 oz pur e alcohol) Rare Sex and Gender Information Value Date Recorded Sex Assigned at Not on file Legal Sex Male 4:57 PM EST Gender Identity Not on file Sexual Orientation Not on file Last Filed Vital Signs Vital Sign Reading Time Taken Comments Blood Pressure 128/68 02/08/2025 3:26 PM EDT Pulse 62 02/08/2025 3:26 PM EDT Temperature - - Respiratory Rate - - Oxygen Saturation 95% 02/08/2025 3:26 PM EDT Inhaled Oxygen Concentration - - Weight 124 kg (274 lb 6.4 oz) 02/08/2025 3:26 PM EDT Height 170.2 cm (5' 7 ) 03/21/2023 2:54 PM EDT Body Mass Index 42.98 03/21/2023 2:54 PM EDT Plan of Treatment Upcoming Encounters Date Type Department Care Team (Late st Contact Info) Description 05/10/2025 3:15 PM EST Office Visit [facility] [address] [facility] [address] Juventino Dunn MD [address] [facility] [address] [place] [address] Health Maintenance Due Date Last Done Comments Colorectal Cancer Screening: Annual FOBT 2006 Colorectal Cancer Screening: Colonoscopy 2006 Colorectal Cancer Screening: Sigmoidoscopy 2006 Pneumococcal Vaccine: 50+ Years (2 of 2 - PCV) 11/12/2017 11/12/2016, 11/12/2016 Diabetes: Ophthalmology Exam 07/29/2020 Diabetes: Pedal Pulse Checked 07/29/2020 Diabetes: Sensory Foot Exam 07/29/2020 Diabetes: Visual Foot Exam 07/29/2020 Diabetes: Hemoglobin A1C 01/27/2025 025, 12/06/2015 Influenza Vaccine (#1) 2025 Pneumococcal Vaccine: Peds ( 0 to 5 Years) and At-Risk Patients (6 to 49 Years) Discontinued 11/12/2016, 11/12/2016 Hepatitis B Vaccine Aged Out No longe r eligible based on patient's age to complete this topic Procedures Procedure Name Priority Date/Time Associated Diagnosis Comments EXT RESULT ENTRY Routine 10/28/2024 from Last 3 Months or Most Recently Relevant to Health Maintenance Results * (ABNORMAL) EXT RESULT ENTRY (10/28/2024) Sodium 137 137 - 147 Potassium 5.7(A) 3.4 - 5.5 Chloride 105.0 99.0 - 108.0 Carbon Dioxide 17 mmol/L Glucose 112 60 - 200 BUN 50(A) 4 - 21 mg/dL Creatinine 2.62(A) 0.60 - 1.30 mg/dL BUN/Creatinine Ratio 19 Calcium 9.3 8.7 - 10.7 mg/dL eGFR Non-Afr Prydeinig 26 Hemoglobin A1C 8.5(A) 4.0 - 6.0 Triglycerides 254 Cholesterol, Total 129 HDL 31 mg/dL VLDL Cholesterol Amrit 41 LDL-Calculated 57 10/28/2024 [facility] Provider LAB BLOOD ORDERABLES Cate l Result from Last 3 Months or Most Recently Relevant to Health Maintenance Insurance [facility] Care Teams Camouflage Specialist Relationship Specialty Start Date End Date Latia Howell MD [address] [phone] PCP - General Family Medicine 11/04/23
--- OUTSIDE RECORDS SUMMARY | 2025-03-26 16:40 | XMS_ITS | Encounter Summary ---
Author Organization [facility] Address [address] [place] [address] Phone Care Team Providers Care Community Relations Liaison Name Role Phone Pcp, Unknown Primary Care Provider Unavailabl e Encounter Details Date Type Department Care Team (Late st Contact Info) Description 11/07/2022 Procedure Pass [place] Admitting Dept - Virtual Department [address] [place] [address] Social History Tobacco Use Types Packs/Day Years Used Date Smoking Tobacco: Never Smokeless Tobacco: Never Alcohol Use Standard Drinks/Week Comments Yes 4 (1 standard drink = 0.6 oz pur e alcohol) Education Answer Date Recorded Are you interested in more education? Not on kamar e 11/05/2022 Are you concerned about learning? Not on file 11/05/2022 No 11/05/2022 No 11/05/2022 Sex and Gender Information Value Date Recorded Sex Assigned at Not on file Legal Sex Male 9:16 AM EDT Gender Identity Not on file Sexual Orientation Not on file documented as of this encounter Plan of Treatment Not on file documented as of this encounter Visit Diagnoses Not on filedocumented in this encounter Care Teams Community Relations Liaison Relationship Specialty Start Date End Date Pcp, Unknown PCP - General 11/05/22 documented as of this encounter Additional Source Comments The information contained in this document represents components of the legal health record. It is not the complete legal health record.[facility]
--- OUTSIDE RECORDS SUMMARY | 2025-03-26 16:40 | XMS_ITS | Clinical Summary ---
Author Organization [facility] Address [address] [place] [address] Care Team Providers Care Roll Edge Machine Operator Name Role Phone Unavailable Primary Care Provider [...] Health Maintenance Due Date Last Done Comments Pneumococcal Vaccine: 50+ Years (2 of 2 - PCV) 11/12/2017 11/12/2016, 11/12/2016 Depression Screening 07/01/2024 COVID-19 Vaccine (2024- season) 2025 06/07/2022, 05/17/2021, 08/19/2020, Additional history exists Influenza Vaccine (#1) 2025 DTaP,Tdap,and Td Vaccines (2 - Td or Tdap) 01/10/2030 01/11/2020 RSV Immunization Adult Patients (1 - 1-dose 75+ series) 2032 Zoster Vaccines Completed 09/03/2022, 03/29/2022 HIB Vaccines Aged Out No longer eligi [...] to complete this topic RSV Immunization Patients Under 20 months Aged Out No longer eligible based on patient's age to complete this topic Varicella Vaccines Aged Out No longer eligible based on patient's age to complete this topic
[2025-03-26 17:16] LABS: MANUAL DIFF FLAG NO
[2025-03-26 17:29] LABS: Hematocrit 34.5 % (42.0-52.0); Hemoglobin 11.6 g/dl (14.0-18.0); Imm Gran Abs Auto 0.03 X10*3/uL (0.00-0.03); Imm Gran Pct Auto 0.4 % (0.0-0.4); Lymphocytes Absolute Auto 2.8 X10*3/uL (1.2-4.9); Mean Corpuscular HGB Conc 33.6 g/dl (31.0-36.0); Mean Corpuscular Hemoglobin 29.7 pg (27.0-33.0); Mean Corpuscular Volume 88.5 fL (80.0-98.0); NRBC Abs Auto 0.000 X10*3/uL (0.0-0.012); NRBC Pct Auto 0.0 /100WBC (0.0-0.2); Platelet Count 228 X10*3/uL (160-400); Red Blood Count 3.90 X10*6/uL (4.60-5.80); White Blood Count 7.0 X10*3/uL (4.8-10.8)
[2025-03-26 17:47] LABS: Appearance Urine Clear; Glucose Urine UA Negative (Negative); PH 5.0 (5.0-9.0); Specific Gravity - Urine 1.010 (1.005-1.025); UMIC TRIGGER UA YES
[2025-03-26 17:52] LABS: Magnesium 1.9 mg/dL (1.6-2.6)
[2025-03-26 17:58] LABS: Albumin Level 4.4 g/dL (3.5-5.0); Anion Gap 15 (12-20); Blood Urea Nitrogen 61 mg/dL (9-16); Calcium 9.3 mg/dL (8.4-10.2); Carbon Dioxide 22 mmol/L (22-29); Chloride 109 mmol/L (96-108); Estimated Glomerular Filt Rate 20; Potassium 5.1 mmol/L (3.3-5.1); Sodium 141 mmol/L (135-145)
[2025-03-26 18:00] LABS: Parathyroid Hormone Intact 343.5 pg/mL (8.7-77.1)
[2025-03-26 19:02] LABS: Microalbum/Creatinine Ratio Ur 1623.4 ug/mg cr (<30); Protein/Creatinine Ratio, Ur 2.32 (<0.2); Total Protein Urine Random 185 mg/dL (<12)
== END 2025-03-26 16:38 | disposition home or self-care (01) ==
LOC: HO.LAB 16:37
PROVIDERS: PCP Student in an Organized Health Care Education/Training Program; Visit Provider Internal Medicine Nephrology
DX: I12.9 Hypertensive chronic kidney disease with stage 1 through stage 4 chronic kidney disease, or unspecified chronic kidney disease (principal); N18.4 Chronic kidney disease, stage 4 (severe); N25.0 Renal osteodystrophy; R80.1 Persistent proteinuria, unspecified
CPT/HCPCS: 36415; 80051; 81001; 82040; 82043; 82306; 82310; 82565; 82570; 83735; 83970; 84100; 84156; 84520; 85025